=== PATIENT | female | born 1995 | race Hispanic/Latino ===

== ENCOUNTER 2018-07-15 13:26 | Emergency (ER) | payer MEDICAID ==
[~2018-07-15 13:26] MED LIST: ACET1TAB12 PO; IBUP-2070 PO; PNV1TABL17 PO
== END 2018-07-15 14:18 | disposition home or self-care (01) ==
LOC: EDH 13:26
DX: R52 Pain, unspecified (principal); M79.10 Myalgia, unspecified site; L93.0 Discoid lupus erythematosus; F43.10 Post-traumatic stress disorder, unspecified
CPT/HCPCS: 99281